=== PATIENT | male | born 2000 | race Caucasian/White ===

== ENCOUNTER 2021-05-20 08:35 | Emergency (ER) | payer OTHER ==
[2021-05-20 08:43] VITALS: BP 111/77; PULSE 112; TEMP 98; BMI 22.6
[2021-05-20] MEDS ORDERED: SODIUM CHLORIDE 0.9% 500 ML INFUS.BAG IV ONE ×2 (09:24→10:30)
[2021-05-20] MEDS ORDERED: KETOROLAC TROMETHAMINE 15 MG/ML VIAL IVPUSH ONE (09:24)
[2021-05-20] MEDS ORDERED: ONDANSETRON 4 MG/2 ML VIAL IVPUSH ONE (09:24)
[2021-05-20] MEDS ORDERED: ONDANSETRON 4 MG/2 ML VIAL ONE (09:30)
[2021-05-20] MEDS ORDERED: KETOROLAC TROMETHAMINE 15 MG/ML VIAL ONE (09:30)
[2021-05-20] MEDS ORDERED: ACETAMINOPHEN 1000 MG/100 ML BAG IVPB ONE (10:46)
[2021-05-20] MEDS ORDERED: ACETAMINOPHEN INJECTION 100 ML IVPB ONE (10:50)
== END 2021-05-20 11:59 | disposition home or self-care (01) ==
LOC: JER 08:35
PROC: 3E033GC Introduction of Other Therapeutic Substance into Peripheral Vein, Percutaneous Approach (ICD-10-PCS; principal; 2021-05-20)
DX: R51.9 Headache, unspecified (principal)
CPT/HCPCS: 99284-25

== ENCOUNTER 2022-01-22 14:36 | Emergency (ER) | payer OTHER ==
[2022-01-22 14:49] VITALS: BP 101/68; PULSE 83; RESP 75; TEMP 98; BMI 23.3
== END 2022-01-22 15:49 | disposition home or self-care (01) ==
LOC: JERFT 14:36
DX: L30.9 Dermatitis, unspecified (principal)
CPT/HCPCS: 99283-25